=== PATIENT | male | born 1955 | race Caucasian/White ===

== ENCOUNTER → 2017-08-13 | Day surgery (SDC) | payer OTHER ==
[~2017-08-13] MED LIST: Lactated Ringers 1,000 ML IV SCH; Propofol 200 MG/20 ML SDV IV ONE
[2017-08-13 08:25] VITALS: BP 151/79
--- NOTE | 2017-08-13 12:31 | OR ---
DATE OF OPERATION: 08/13/2017 PREOPERATIVE DIAGNOSIS: SCREENING COLONOSCOPY. POSTOPERATIVE DIAGNOSIS: SCREENING COLONOSCOPY. SURGEON: Jaron Bishop MD PROCEDURE: FULL LENGTH COLONOSCOPY WITH SNARE POLYPECTOMY X1. ANESTHESIA: EQUIPMENT MAINTENANCE TECHNICIAN. COMPLICATIONS: None. SPECIMEN: Villous adenoma, proximal sigmoid colon. FINDINGS: 1. Full-length colonoscopy. 2. Mild sigmoid diverticulosis. 3. Tubulovillous adenoma, proximal sigmoid colon, approximately 0.5 cm. RECOMMENDATIONS: Followup colonoscopy in 3 years. INDICATIONS: The patient is due for a screening colonoscopy. Dr. Calvillo sent him as his last procedure had been over 10 years ago. DESCRIPTION OF PROCEDURE: The patient was prepped and draped, placed in the left lateral decubitus position. A lubricated Olympus colonoscope was inserted and easily advanced to the cecum. Direct visualization of the ileocecal valve was accomplished. The bowel prep was adequate. Upon withdrawal, the cecum, ascending, and transverse colon were all completely benign. The patient had scattered diverticula in the left colon, starting at the distal descending colon, extending to the rectosigmoid junction, mild in severity. At around 50 cm, what appeared to be the proximal sigmoid colon, the patient had a tubulovillous adenoma approximately 0.5 cm in size. This was removed with a snare and suctioned to polyp trap #1 without difficulty. No other polyps, masses, ulcerations, or lesions were seen. There were no vascular abnormalities or signs of colitis. The rectal vault was unremarkable. Retroflexion of scope in the rectum showed no anal lesions. Air was suctioned, scope removed without complication. CELI/JUANITO /[id number]
== END ==
LOC: CC.SDS 06:06
PROVIDERS: ATTEND Family Medicine
DX: Z12.11 Encounter for screening for malignant neoplasm of colon (principal); J01.90 Acute sinusitis, unspecified; F41.8 Other specified anxiety disorders; M19.90 Unspecified osteoarthritis, unspecified site; H91.8X9 Other specified hearing loss, unspecified ear; N40.1 Benign prostatic hyperplasia with lower urinary tract symptoms; I10 Essential (primary) hypertension; K57.30 Diverticulosis of large intestine without perforation or abscess without bleeding; D12.5 Benign neoplasm of sigmoid colon; E78.5 Hyperlipidemia, unspecified; R35.1 Nocturia; N41.0 Acute prostatitis; J30.2 Other seasonal allergic rhinitis; E11.9 Type 2 diabetes mellitus without complications; N39.0 Urinary tract infection, site not specified; E55.9 Vitamin D deficiency, unspecified; Z88.0 Allergy status to penicillin; Z88.4 Allergy status to anesthetic agent; Z79.899 Other long term (current) drug therapy; Z87.442 Personal history of urinary calculi; Z90.49 Acquired absence of other specified parts of digestive tract; Z98.52 Vasectomy status; Z87.891 Personal history of nicotine dependence
CPT/HCPCS: 45385; J2704; J7120

== ENCOUNTER 2018-08-01 17:31 | Inpatient (IN) | payer OTHER ==
[2018-08-01] MEDS ORDERED: Ondansetron 4 MG/2 ML SDV IV PRN (17:57)
[2018-08-01] MEDS ORDERED: Temazepam 15 MG Cap PO PRN (17:57)
[2018-08-01] MEDS ORDERED: Acetaminophen 325 MG Tab PO PRN (17:57)
[2018-08-01] MEDS ORDERED: Morphine 2 MG/ML Syringe IVPUSH PRN (17:57)
[2018-08-01] MEDS ORDERED: Sodium Chloride 0.9% 1,000 ML IV SCH (18:00)
[2018-08-01] MEDS ORDERED: Levofloxacin/Dextrose 5%-Water 500 MG in Premix Bag 1 BAG IV SCH (18:00)
[2018-08-01] MEDS: metroNIDAZOLE/Normal Saline 500 MG in Premix Bag 1 BAG IV SCH (19:43)
[2018-08-01] MEDS ORDERED: ClonazePAM 1 MG Tab PO PRN (19:55)
[2018-08-01] MEDS ORDERED: amLODIPine 2.5 MG Tab PO SCH (20:00)
[2018-08-01] MEDS ORDERED: risperiDONE 1 MG Tab PO SCH (20:00)
[2018-08-01] MEDS ORDERED: Enoxaparin 30 MG/0.3 ML Syringe SUBCUT SCH (20:45)
[2018-08-02] MEDS: metroNIDAZOLE/Normal Saline 500 MG in Premix Bag 1 BAG IV SCH ×2 (02:19→09:16)
[2018-08-02 07:44] LABS: CHLORIDE,CL 104 mEq/L (98-106); SODIUM,NA 138 mEq/L (136-145)
[2018-08-02] MEDS ORDERED: Potassium Chloride 20 MEQ in Premix Bag 1 BAG IV ONE (09:04)
[2018-08-02] MEDS ORDERED: Sodium Chloride 0.9% 500 ML IV ONE ×4 (09:45→14:00)
[2018-08-02] MEDS: Sodium Chloride 0.9% 1,000 ML IV ONE ×2 (10:24→12:45)
[2018-08-02 12:00] VITALS: BP 126/66
--- NOTE | 2018-08-02 12:22 | PCM.PN ---
- Patient Data Vitals - Most Recent: Last Vital Signs Temp 99.7 F 08/02/18 11:58 Pulse 74 08/02/18 11:58 Resp 20 08/02/18 11:58 BP 126/66 08/02/18 11:58 Pulse Ox 94 L 08/02/18 11:58 Weight - Most Recent: 205 lb 11.2 oz I&O - Last 24 Hours: Intake & Output 08/01/18 08/02/18 08/02/18 22:59 06:59 14:59 Intake Total 100 100 Balance 100 100 Lab Results Last 24 Hours: Laboratory Results - last 24 hr 08/02/18 08/02/18 Range/Units 07:00 07:00 WBC 8.7 (5.0-10.0) 10^3/uL RBC 4.63 (4.50-6.00) 10^6/uL Hgb 14.2 (14.0-18.0) g/dL Hct 40.7 (40.0-54.0) % MCV 87.9 (82.0-94.0) fL MCH 30.7 (27.0-32.0) pg MCHC 34.9 (33.0-38.0) g/dL RDW Coeff of [place] 12.1 (11.0-15.0) % Plt Count 303 (150-400) 10^3/uL Neut % (Auto) 73.2 (35-85) % Lymph % (Auto) 10.2 (10-55) % [place] % (Auto) 14.7 (0-16) % Eos % (Auto) 1.7 (0-5) % Baso % (Auto) 0.2 (0-3) % Neut # (Auto) 6.33 (1.80-7.00) 10^3/uL Lymph # (Auto) 0.88 L (1.00-4.80) 10^3/uL [place] # (Auto) 1.27 H (0.00-0.80) 10^3/uL Eos # (Auto) 0.15 (0.00-0.45) 10^3/uL Baso # (Auto) 0.02 10^3/uL Sodium 138 (136-145) mEq/L Potassium 3.4 L (3.5-5.0) mEq/L Chloride 104 (98-106) mEq/L Carbon Dioxide 24 (21-32) mmol/L BUN 8 (7-18) mg/dL Creatinine 1.0 (0.7-1.3) mg/dL Est Cr Clr Drug Dosing 72.20 mL/min Estimated GFR (MDRD) > 60 (>=60) mL/min Glucose 101 H (75-99) mg/dL Calcium 7.9 L (8.4-10.1) mg/dL C-Reactive Protein 6.9 H (0.2-0.8) mg/dL Med Orders - Current: Current Medications Acetaminophen (Tylenol) 650 mg PO Q4H PRN PRN Reason: Pain (Mild 1-3)/fever Amlodipine Besylate (Norvasc) 5 mg PO BEDTIME [facility] Last Admin: 08/01/18 20:38 Dose: 5 mg Clonazepam (Klonopin) 0.5 mg PO BID PRN PRN Reason: Anxiety Last Admin: 08/01/18 20:39 Dose: 0.5 mg Enoxaparin Sodium (Lovenox) 30 mg SUBCUT Q24H [facility] Last Admin: 08/01/18 21:08 Dose: 30 mg Metronidazole 500 mg/ Premix 100 mls @ 100 mls/hr IV Q8H [facility] Last Admin: 08/02/18 09:16 Dose: 100 mls/hr Potassium Chloride 20 meq/ (Premix) 100 mls @ 25 mls/hr IV ONETIME ONE Stop: 08/02/18 13:03 Last Admin: 08/02/18 10:24 Dose: 25 mls/hr Levofloxacin/Dextrose 500 mg/ (Premix) 100 mls @ 100 mls/hr IV 1500 [facility] Sodium Chloride (Normal Saline) 1,000 mls @ 250 mls/hr IV ONETIME ONE Stop: 08/02/18 13:44 Last Admin: 08/02/18 10:24 Dose: 250 mls/hr Morphine Sulfate (Morphine) 2 mg IVPUSH Q2H PRN PRN Reason: Pain (severe 7-10) Ondansetron HCl (Zofran) 4 mg IV Q6H PRN PRN Reason: Nausea/Vomiting Risperidone (Risperidal) 1 mg PO BEDTIME [facility] Last Admin: 08/01/18 20:38 Dose: 1 mg Temazepam (Restoril) 15 mg PO BEDTIME PRN PRN Reason: Sleep Discontinued Medications Levofloxacin/Dextrose 500 mg/ (Premix) 100 mls @ 100 mls/hr IV Q24H [facility] Last Admin: 08/01/18 20:42 Dose: 100 mls/hr Sodium Chloride (Normal Saline) 1,000 mls @ 100 mls/hr IV ASDIRECTED [facility] Last Admin: 08/01/18 19:40 Dose: 100 mls/hr Sodium Chloride (Normal Saline) 500 mls @ 125 mls/hr IV ONETIME ONE Stop: 08/02/18 13:44 - My Orders Last 24 Hours: My Active Orders 08/01/18 17:57 Patient Status [ADT] Routine Oxygen Therapy [RC] .PRN Up ad Nahed [RC] ASDIRECTED Vital Signs [RC] 0000,0400,0800,1200,1600,2000 Acetaminophen [Tylenol] 650 mg PO Q4H PRN Morphine 2 mg IVPUSH Q2H PRN Ondansetron [Zofran] 4 mg IV Q6H PRN Temazepam [Restoril] 15 mg PO BEDTIME PRN Resuscitation Status Routine 08/01/18 17:58 Pulse Oximetry [RC] .PRN 08/01/18 18:15 metroNIDAZOLE/Normal Saline [Flagyl 500 MG in NS 100 ML] 500 mg Premix Bag 1 bag IV Q8H 08/01/18 19:55 ClonazePAM [KlonoPIN] 0.5 mg PO BID PRN 08/01/18 20:00 amLODIPine [Norvasc] 5 mg PO BEDTIME risperiDONE [RisperiDAL] 1 mg PO BEDTIME 08/01/18 20:45 Enoxaparin [Lovenox] 30 mg SUBCUT Q24H 08/01/18 Dinner Regular Diet [DIET] 08/02/18 09:04 Potassium Chloride [KCL 20 MEQ in Water 100 ML] 20 meq Premix Bag 1 bag IV ONETIME 08/02/18 09:45 Sodium Chloride 0.9% [Normal Saline] 1,000 ml IV ONETIME 08/02/18 15:00 Levofloxacin/Dextrose 5%-Water [Levaquin in D5W 500 MG/100 ML] 500 mg Premix Bag 1 bag IV 1500 08/03/18 06:00 BASIC METABOLIC PANEL,BMP [CHEM] DAILY C-REACTIVE PROTEIN [CHEM] DAILY CBC WITH AUTO DIFF [HEME] DAILY 08/04/18 06:00 BASIC METABOLIC PANEL,BMP [CHEM] DAILY C-REACTIVE PROTEIN [CHEM] DAILY CBC WITH AUTO DIFF [HEME] DAILY
--- NOTE | 2018-08-02 12:23 | PCM.DCSUM1 ---
Discharge Summary - Discharge Data Discharge Date: 08/02/18 Discharge Disposition: Home, Self-Care 01 Condition: Good - Discharge Plan Prescriptions/Med Rec: Vancomycin [Vancocin 125 MG/2.5 ML Soln] 125 mg PO QID 10 Days #40 cup Home Medications: Home Meds amLODIPine Besylate [Amlodipine Besylate] 5 mg PO BEDTIME 01/12/16 [History] clonazePAM [Clonazepam] 0.5 tab PO BID PRN 01/12/16 [History] risperiDONE 1 tab PO BEDTIME 01/12/16 [History] Ascorbate Calcium [Vitamin C] 1 cap PO DAILY 08/12/17 [History] Vancomycin [Vancocin 125 MG/2.5 ML Soln] 125 mg PO QID 10 Days #40 cup 08/02/18 [Rx] Patient Handouts: Diverticulitis, [id number] - Patient Data Vitals - Most Recent: Last Vital Signs Temp 99.7 F 08/02/18 11:58 Pulse 74 08/02/18 11:58 Resp 20 08/02/18 11:58 BP 126/66 08/02/18 11:58 Pulse Ox 94 L 08/02/18 11:58 Weight - Most Recent: 205 lb 11.2 oz I&O - Last 24 hours: Intake & Output 08/01/18 08/02/18 08/02/18 22:59 06:59 14:59 Intake Total 100 100 Balance 100 100 Lab Results - Last 24 hrs: Laboratory Results - last 24 hr 08/02/18 08/02/18 Range/Units 07:00 07:00 WBC 8.7 (5.0-10.0) 10^3/uL RBC 4.63 (4.50-6.00) 10^6/uL Hgb 14.2 (14.0-18.0) g/dL Hct 40.7 (40.0-54.0) % MCV 87.9 (82.0-94.0) fL MCH 30.7 (27.0-32.0) pg MCHC 34.9 (33.0-38.0) g/dL RDW Coeff of [place] 12.1 (11.0-15.0) % Plt Count 303 (150-400) 10^3/uL Neut % (Auto) 73.2 (35-85) % Lymph % (Auto) 10.2 (10-55) % [place] % (Auto) 14.7 (0-16) % Eos % (Auto) 1.7 (0-5) % Baso % (Auto) 0.2 (0-3) % Neut # (Auto) 6.33 (1.80-7.00) 10^3/uL Lymph # (Auto) 0.88 L (1.00-4.80) 10^3/uL [place] # (Auto) 1.27 H (0.00-0.80) 10^3/uL Eos # (Auto) 0.15 (0.00-0.45) 10^3/uL Baso # (Auto) 0.02 10^3/uL Sodium 138 (136-145) mEq/L Potassium 3.4 L (3.5-5.0) mEq/L Chloride 104 (98-106) mEq/L Carbon Dioxide 24 (21-32) mmol/L BUN 8 (7-18) mg/dL Creatinine 1.0 (0.7-1.3) mg/dL Est Cr Clr Drug Dosing 72.20 mL/min Estimated GFR (MDRD) > 60 (>=60) mL/min Glucose 101 H (75-99) mg/dL Calcium 7.9 L (8.4-10.1) mg/dL C-Reactive Protein 6.9 H (0.2-0.8) mg/dL Med Orders - Current: Current Medications Acetaminophen (Tylenol) 650 mg PO Q4H PRN PRN Reason: Pain (Mild 1-3)/fever Amlodipine Besylate (Norvasc) 5 mg PO BEDTIME [facility] Last Admin: 08/01/18 20:38 Dose: 5 mg Clonazepam (Klonopin) 0.5 mg PO BID PRN PRN Reason: Anxiety Last Admin: 08/01/18 20:39 Dose: 0.5 mg Enoxaparin Sodium (Lovenox) 30 mg SUBCUT Q24H [facility] Last Admin: 08/01/18 21:08 Dose: 30 mg Metronidazole 500 mg/ Premix 100 mls @ 100 mls/hr IV Q8H [facility] Last Admin: 08/02/18 09:16 Dose: 100 mls/hr Potassium Chloride 20 meq/ (Premix) 100 mls @ 25 mls/hr IV ONETIME ONE Stop: 08/02/18 13:03 Last Admin: 08/02/18 10:24 Dose: 25 mls/hr Levofloxacin/Dextrose 500 mg/ (Premix) 100 mls @ 100 mls/hr IV 1500 [facility]INA Sodium Chloride (Normal Saline) 1,000 mls @ 250 mls/hr IV ONETIME ONE Stop: 08/02/18 13:44 Last Admin: 08/02/18 10:24 Dose: 250 mls/hr Morphine Sulfate (Morphine) 2 mg IVPUSH Q2H PRN PRN Reason: Pain (severe 7-10) Ondansetron HCl (Zofran) 4 mg IV Q6H PRN PRN Reason: Nausea/Vomiting Risperidone (Risperidal) 1 mg PO BEDTIME [facility] Last Admin: 08/01/18 20:38 Dose: 1 mg Temazepam (Restoril) 15 mg PO BEDTIME PRN PRN Reason: Sleep Discontinued Medications Levofloxacin/Dextrose 500 mg/ (Premix) 100 mls @ 100 mls/hr IV Q24H [facility] Last Admin: 08/01/18 20:42 Dose: 100 mls/hr Sodium Chloride (Normal Saline) 1,000 mls @ 100 mls/hr IV ASDIRECTED [facility] Last Admin: 08/01/18 19:40 Dose: 100 mls/hr Sodium Chloride (Normal Saline) 500 mls @ 125 mls/hr IV ONETIME ONE Stop: 08/02/18 13:44
[2018-08-02] MEDS ORDERED: Sodium Chloride 0.9% 500 ML ONE (12:41)
[2018-08-02] MEDS ORDERED: Levofloxacin/Dextrose 5%-Water 500 MG in Premix Bag 1 BAG IV SCH (15:00)
== END 2018-08-02 16:10 | disposition home or self-care (01) | DRG 392 ==
LOC: UNDOADMIN 17:55 → CC.MS 17:55
PROVIDERS: ADMIT Physician Assistant Medical; ATTEND Family Medicine
DX: K57.20 Diverticulitis of large intestine with perforation and abscess without bleeding (principal); F41.9 Anxiety disorder, unspecified; F32.9 Major depressive disorder, single episode, unspecified; M19.90 Unspecified osteoarthritis, unspecified site; H91.8X9 Other specified hearing loss, unspecified ear; I10 Essential (primary) hypertension; E78.5 Hyperlipidemia, unspecified; E55.9 Vitamin D deficiency, unspecified; Z88.0 Allergy status to penicillin; Z88.4 Allergy status to anesthetic agent; Z79.899 Other long term (current) drug therapy; Z87.891 Personal history of nicotine dependence; R19.7 Diarrhea, unspecified; R10.9 Unspecified abdominal pain
CPT/HCPCS: 36415; 74177; 80048; 80053; 81001; 83735; 85025; 86140; 87045; 87046; 87493; 87899; 89055; A9270-GY; J1650; J1956; J3480; J3490; J7030; J7040; Q9967

== ENCOUNTER → 2018-10-06 | Day surgery (SDC) | payer OTHER ==
[~2018-10-06] MED LIST changes: +Bupivacaine 0.25% 10 ML SDV ONE; +Lidocaine 1% with EPINEPHrine 1:100,000 20 ML MDV ONE; +Midazolam 1 MG/ML 2 ML SDV IV ONE; +Ondansetron 4 MG/2 ML SDV IV ONE; +fentaNYL 100 MCG/2 ML SDV IV ONE
[2018-10-06 13:22] VITALS: BP 141/76
--- NOTE | 2018-10-07 09:35 | OR ---
DATE OF OPERATION: 10/06/2018 PREOPERATIVE DIAGNOSIS: HISTORY OF PERIRECTAL ABSCESS ON RIGHT SIDE. POSTOPERATIVE DIAGNOSIS: HISTORY OF PERIRECTAL ABSCESS ON RIGHT SIDE. SURGEON: Jaiden Marques MD PROCEDURE: EXAMINATION UNDER ANESTHESIA. ANESTHESIA: Monitored anesthesia care. SPECIMEN: None. INDICATIONS: This 62-year-old male complains of intermittent abscess or swelling in the perirectal area. This mostly is on the right side by my physical examination several months ago. When I initially saw him in the clinic, he did have more of an indurated, nodular area, but not a true flocculent area to drain. He still says he persists with some symptoms, but at the current time, it is mostly gone, he said. I recommended an examination under anesthesia. DESCRIPTION OF PROCEDURE: After adequate sedation, an anoscope was inserted into the rectum. He does have an indurated area on the right side, in the perianal area anterior to [place]'s line. By theory, he should have a radial tract from the indurated area straight into the anal canal. However, examination does not show any kind of an opening in the anal canal. I did aspirate this area, which by palpation seemed to be about a centimeter in diameter. I was not able to aspirate any type of fluid or purulent abscess. I decided that this may be more induration than abscess, and decided not to incise and drain this area since I did not feel that I would get anything out of it. No other abnormalities were noted. FINDINGS: On rectal examination, he does have a few external hemorrhoids. The patient was awakened and taken to recovery room. YAKELIN/JUANITO /[id number]
== END ==
LOC: CC.SDS 09:08
PROVIDERS: ATTEND Surgery
DX: K64.4 Residual hemorrhoidal skin tags (principal); E78.5 Hyperlipidemia, unspecified; E55.9 Vitamin D deficiency, unspecified; I10 Essential (primary) hypertension; M19.90 Unspecified osteoarthritis, unspecified site; F41.9 Anxiety disorder, unspecified; F32.9 Major depressive disorder, single episode, unspecified; Z88.0 Allergy status to penicillin; Z88.4 Allergy status to anesthetic agent; Z79.899 Other long term (current) drug therapy; Z87.891 Personal history of nicotine dependence
CPT/HCPCS: J2250; J2405; J2704; J3010; J7120

== ENCOUNTER → 2020-05-17 | Day surgery (SDC) | payer OTHER ==
[~2020-05-17] MED LIST changes: -Bupivacaine 0.25% 10 ML SDV ONE; +Ketamine 200 MG/20 ML MDV IV ONE; -Lactated Ringers 1,000 ML IV SCH; -Lidocaine 1% with EPINEPHrine 1:100,000 20 ML MDV ONE; -Ondansetron 4 MG/2 ML SDV IV ONE
[2020-05-17] MEDS: Lactated Ringers 1,000 ML IV SCH (08:45)
[2020-05-17 09:59] VITALS: BP 139/78; PULSE 67
--- NOTE | 2020-05-17 14:23 | OR ---
DATE OF OPERATION: 05/17/2020 PREOPERATIVE DIAGNOSIS: FOLLOWUP POLYPS. POSTOPERATIVE DIAGNOSIS: FOLLOWUP POLYPS. SURGEON: Jaron Bishop MD PROCEDURE: FULL-LENGTH COLONOSCOPY. ANESTHESIA: MAC. COMPLICATIONS: None. SPECIMEN: None. FINDINGS: 1. Full-length colonoscopy. 2. No polyp recurrence. 3. Mild sigmoid diverticulosis. RECOMMENDATIONS: Followup colonoscopy in 5 years. INDICATIONS: The patient had a villous lesion removed 3 years ago. He is due for a followup surveillance scope. DESCRIPTION OF PROCEDURE: The patient was prepped and draped, placed in a left lateral decubitus position. A lubricated Olympus colonoscope inserted and with ease advanced to the cecum, direct visualization of the ileocecal valve and appendiceal orifice was accomplished. The bowel prep was fine. Upon withdrawal of the scope, once again the right transverse and descending colons were completely unremarkable. The patient had scattered diverticula in the sigmoid and in the rectosigmoid junction, mild in severity. There was no sign of polyp recurrence in the sigmoid colon. The rectal vault was benign. Retroflexion of the scope in the rectum showed no anal lesions. Air was suctioned. Scope removed without complication. CELI/JUANITO /[id number]
== END ==
LOC: CC.SDS 08:12
PROVIDERS: ATTEND Family Medicine
DX: Z12.11 Encounter for screening for malignant neoplasm of colon (principal); K57.30 Diverticulosis of large intestine without perforation or abscess without bleeding; F41.9 Anxiety disorder, unspecified; F32.9 Major depressive disorder, single episode, unspecified; I10 Essential (primary) hypertension; E78.5 Hyperlipidemia, unspecified; Z88.1 Allergy status to other antibiotic agents; Z88.0 Allergy status to penicillin; Z88.8 Allergy status to other drugs, medicaments and biological substances; Z79.899 Other long term (current) drug therapy; Z87.891 Personal history of nicotine dependence; Z86.010 Personal history of colon polyps
CPT/HCPCS: J2250; J2704; J3010; J7120

== ENCOUNTER 2021-01-30 00:40 | Emergency (ER) | payer OTHER ==
[2021-01-30 01:13] LABS: CHLORIDE,CL 103 mEq/L (98-106); SODIUM,NA 139 mEq/L (136-145)
[2021-01-30] MEDS ORDERED: Ondansetron 4 MG Tab.DIS PO ONE (01:22)
[2021-01-30] MEDS ORDERED: Bisacodyl 10 MG Supp RECTAL ONE (01:22)
--- NOTE | 2021-01-30 01:23 | EDM.PDOC ---
ED HPI GENERAL MEDICAL PROBLEM - General Chief Complaint: General Stated Complaint: abdominal pain Time Seen by Provider: 01/30/21 01:10 Source of Information: Reports: Patient History Limitations: Reports: No Limitations - History of Present Illness INITIAL COMMENTS - FREE TEXT/NARRATIVE: Seth is a 65 year old male who presents to ER with complaints of lower quadrant abdominal discomfort, nausea/vomiting. Ate a 2 day old steak that was in the fridge tonight, questions if caused food poisoning. He denies fever. Had one episode of vomiting prior to coming to the ER. Feels bloated. No diarrhea. Last BM was over 2 days ago. He admits that was drinking a great deal of alcohol, stopped 3-4 days ago. No tremors or hallucinations. Had been feeling well all day until around 10 pm. Has not been able to void easily nor pass gas. Onset: Today Duration: Hour(s):, Waxing/Waning Location: Reports: Abdomen Quality: Reports: Ache Severity: Moderate Associated Symptoms: Reports: Nausea/Vomiting. Denies: Confusion, Chest Pain, Cough, Fever/Chills, Loss of Appetite, Shortness of Breath Bilateral Lower Abdomen Pain Score (Numeric/FACES): 8 - Related Data Allergies Allergy/AdvReac Type Severity Reaction Status Date / Time erythromycin base Allergy Intermediate Rash Verified 01/30/21 01:19 [Erythromycin Base] Penicillins Allergy Intermediate Rash Verified 01/30/21 01:19 clindamycin Allergy Cannot Verified 01/30/21 01:19 Remember gel caps AdvReac Nervousness Uncoded 01/30/21 01:19 novacaine AdvReac Shaking Uncoded 01/30/21 01:19 petroleum chemicals AdvReac Nervousness Uncoded 01/30/21 01:19 Home Meds: Home Meds amLODIPine Besylate [Amlodipine Besylate] 5 mg PO BEDTIME 01/12/16 [History] clonazePAM [Clonazepam] 0.25 tab PO BID PRN 01/12/16 [History] risperiDONE 1 mg PO BEDTIME 01/12/16 [History] Calcium Carbonate [Antacid] 1 tab PO ASDIRECTED PRN 01/30/21 [History] Past Medical History HEENT History: Reports: Hard of Hearing, Impaired Vision Cardiovascular History: Reports: Hypertension Gastrointestinal History: Reports: Diverticulosis Psychiatric History: Reports: Anxiety, Depression Endocrine/Metabolic History: Reports: Other (See Below) Other Endocrine/Metabolic History: borderline diabetic - Infectious Disease History Infectious Disease History: Reports: C-Difficile - Past Surgical History GI Surgical History: Reports: Appendectomy, Colonoscopy Social & Family History - Family History Cardiac: Reports: Hypertension Endocrine/Metabolic: Reports: Diabetes, type II - Tobacco Use Tobacco Use Status *Q: Former Tobacco User - Caffeine Use Caffeine Use: Reports: Coffee - Living Situation & Occupation Living situation: Reports: with Family ED ROS GENERAL - Review of Systems Review Of Systems: See Below Constitutional: Denies: Fever, Chills, Malaise, Weakness, Fatigue, Decreased Appetite HEENT: Denies: Ear Pain, Sinus Problem, Throat Pain, Vertigo Respiratory: Denies: Shortness of Breath, Cough Cardiovascular: Denies: Chest Pain, Edema, Lightheadedness Endocrine: Denies: Fatigue GI/Abdominal: Reports: Abdominal Pain, Constipation, Nausea, Vomiting. Denies: Black Stool, Bloody Stool : Reports: Urinary Retention Musculoskeletal: Reports: No Symptoms Skin: Reports: No Symptoms Neurological: Reports: No Symptoms ED EXAM, GENERAL - Physical Exam Exam: See Below Exam Limited By: No Limitations General Appearance: Alert, WD/WN, Mild Distress Ears: Normal External Exam, Normal TMs Nose: Normal Inspection, Normal Mucosa, No Blood Throat/Mouth: Normal Inspection, Normal Oropharynx Head: Normocephalic Neck: Normal Inspection, Supple, Non-Tender Respiratory/Chest: No Respiratory Distress, Lungs Clear, Normal Breath Sounds Cardiovascular: Regular Rate, Rhythm GI/Abdominal: Normal Bowel Sounds, Soft, Tender (suprapubic area) Extremities: Normal Inspection, No Pedal Edema Neurological: Alert, Oriented Skin Exam: Warm, Dry Course - Vital Signs Last Recorded V/S: Last Vital Signs Temp 98.3 F 01/30/21 03:55 Pulse 61 01/30/21 03:55 Resp 18 01/30/21 03:55 BP 137/74 01/30/21 03:55 Pulse Ox 95 01/30/21 03:55 - Orders/Labs/Meds Orders: Active Orders 24 hr Category Date Time Status Abdomen 2V AP Flat Upright [CR] Stat Exams 01/30/21 01:03 Taken Abdomen Pelvis w Cont [CT] Stat Exams 01/30/21 01:52 Taken Labs: Laboratory Tests 01/30/21 01/30/21 01/30/21 Range/Units 00:55 00:55 00:55 WBC 7.3 (5.0-10.0) 10^3/uL RBC 4.42 L (4.50-6.00) 10^6/uL Hgb 13.7 L (14.0-18.0) g/dL Hct 40.1 (40.0-54.0) % MCV 90.7 (82.0-94.0) fL MCH 31.0 (27.0-32.0) pg MCHC 34.2 (33.0-38.0) g/dL RDW Coeff of [place] 12.8 (11.0-15.0) % Plt Count 247 (150-400) 10^3/uL Neut % (Auto) 61.2 (35-85) % Lymph % (Auto) 23.2 (10-55) % [place] % (Auto) 11.6 (0-16) % Eos % (Auto) 3.5 (0-5) % Baso % (Auto) 0.5 (0-3) % Neut # (Auto) 4.48 (1.80-7.00) 10^3/uL Lymph # (Auto) 1.70 (1.00-4.80) 10^3/uL [place] # (Auto) 0.85 H (0.00-0.80) 10^3/uL Eos # (Auto) 0.26 (0.00-0.45) 10^3/uL Baso # (Auto) 0.04 10^3/uL Sodium 139 (136-145) mEq/L Potassium 3.7 (3.5-5.0) mEq/L Chloride 103 (98-106) mEq/L Carbon Dioxide 24 (21-32) mmol/L BUN 18 (7-18) mg/dL Creatinine 1.5 H (0.7-1.3) mg/dL Est Cr Clr Drug Dosing 47.01 mL/min Estimated GFR (MDRD) 47 L (>=60) mL/min Glucose 162 H D (75-99) mg/dL Calcium 8.1 L (8.4-10.1) mg/dL Total Bilirubin 0.6 (0.0-1.0) mg/dL AST 38 H (15-37) U/L ALT 59 (12-78) U/L Alkaline Phosphatase 99 (46-116) U/L C-Reactive Protein < 0.2 L (0.2-0.8) mg/dL Total Protein 7.5 (6.4-8.2) g/dL Albumin 3.7 (3.4-5.0) g/dL Amylase 48 (25-115) U/L Lipase 139 (73-393) U/L Urine Color Light yellow (YELLOW) Urine Appearance Clear (CLEAR) Urine pH 7.0 (4.5-8.0) Ur Specific [place] 1.025 H (1.003-1.020) Urine Protein Negative (NEGATIVE) mg/dL Urine Glucose (UA) 100 H (NEGATIVE) mg/dL Urine Ketones Negative (NEGATIVE) mg/dL Urine Occult Blood Trace-intact H (NEGATIVE) Urine Nitrite Negative (NEGATIVE) Urine Bilirubin Negative (NEGATIVE) Urine Urobilinogen 0.2 (0.2-1.0) EU/dL Ur Leukocyte Esterase Negative (NEGATIVE) Urine RBC 0-5 (0-5) /HPF Urine WBC Not seen (0-5) /HPF Meds: Medications Discontinued Medications Generic Name Dose Route Start Last Admin Trade Name Freq PRN Reason Stop Dose Admin Bisacodyl 10 mg 01/30/21 01:22 01/30/21 01:25 Bisacodyl 10 Mg Supp RECTAL 01/30/21 01:23 10 mg ONETIME ONE Administration Sodium Chloride 1,000 mls @ 999 mls/hr 01/30/21 02:27 01/30/21 02:34 Normal Saline IV 01/30/21 03:27 999 mls/hr .BOLUS ONE Administration Iopamidol 100 ml 01/30/21 01:58 01/30/21 02:12 Iopamidol 755 Mg/Ml 100 Ml Bottle IVPUSH 01/30/21 01:59 100 ml ONETIME ONE Administration Ketorolac Tromethamine 30 mg 01/30/21 02:27 01/30/21 02:33 Ketorolac 30 Mg/Ml Sdv IVPUSH 01/30/21 02:28 30 mg ONETIME ONE Administration Ondansetron HCl 4 mg 01/30/21 01:22 01/30/21 01:25 Ondansetron 4 Mg Tab.Dis PO 01/30/21 01:23 4 mg ONETIME ONE Administration - Re-Assessments/Exams Free Text/Narrative Re-Assessment/Exam: 01/30/21 01:33 Labs all unremarkable. Xray shows gas and stool presence, no obstruction. Zofran given, dulcolax suppository given. 0150-UA shows trace of blood. Had small BM which he states "helped only a little bit". Still feels urge to defacate. Having ongoing lower suprapubic pain. Will proceed with CT scan of abdomen. 01/30/21 02:25 CT report received. Does have 3.7 mm stone to the right ureter, nonobstructing. Will start IV fluids, IV Toradol for pain. 01/30/21 03:00-Patient relates pain "100% better now". Resting more comfortably. Departure - Departure Time of Disposition: 03:58 Disposition: Home, Self-Care 01 Condition: Good Clinical Impression: Ureteral stone - Discharge Information *PRESCRIPTION DRUG MONITORING PROGRAM REVIEWED*: No *COPY OF PRESCRIPTION DRUG MONITORING REPORT IN PATIENT VENTURA: No Instructions: Kidney Stones Referrals: Natalio Castro, RAÚL [Primary Care Provider] - Forms: ED Department Discharge Additional Instructions: 1. Push fluids 2. Strain urine 3. Hydrocodone 1-2 tabs every 6 hours as needed for pain 4. Flomax 0.4 mg daily for 7 days 5. Keep scheduled appointment with Kris Castro on Wednesday am as planned. Sepsis Event Note (ED) - Evaluation Sepsis Screening Result: No Definite Risk - Focused Exam Vital Signs: Vital Signs Temp Pulse Resp BP Pulse Ox 01/30/21 03:55 98.3 F 61 18 137/74 95 01/30/21 00:43 98.4 F 72 18 177/101 H 95 - My Orders Last 24 Hours: My Active Orders 01/30/21 01:03 Abdomen 2V AP Flat Upright [CR] Stat 01/30/21 01:52 Abdomen Pelvis w Cont [CT] Stat - Assessment/Plan Last 24 Hours: My Active Orders 01/30/21 01:03 Abdomen 2V AP Flat Upright [CR] Stat 01/30/21 01:52 Abdomen Pelvis w Cont [CT] Stat
[2021-01-30] MEDS ORDERED: Iopamidol 755 Mg/ML 100 ML Bottle IVPUSH ONE (01:58)
[2021-01-30] MEDS ORDERED: Sodium Chloride 0.9% 1,000 ML IV ONE (02:27)
[2021-01-30] MEDS ORDERED: Ketorolac 30 MG/ML SDV IVPUSH ONE (02:27)
[2021-01-30 03:55] VITALS: BP 137/74; PULSE 61
[2021-01-30] MEDS ORDERED: Take Home: Acetaminophen/HYDROcodone 325-5 MG, 2 Tab Pack PO ONE (04:00)
== END 2021-01-30 04:15 | disposition home or self-care (01) ==
LOC: CC.ED 00:40
DX: N13.2 Hydronephrosis with renal and ureteral calculous obstruction (principal); I10 Essential (primary) hypertension; Z88.1 Allergy status to other antibiotic agents; Z88.0 Allergy status to penicillin; Z88.4 Allergy status to anesthetic agent; Z91.048 Other nonmedicinal substance allergy status; Z87.891 Personal history of nicotine dependence
CPT/HCPCS: 36415; 74019; 74177; 80053; 81001; 82150; 83690; 85025; 86140; 96374; 99284-25; A9270-GY; J1885; J7030; Q9967

== ENCOUNTER 2025-02-09 08:07 | Day surgery (SDC) | payer OTHER, MEDICARE ==
[2025-02-09] MEDS: Lactated Ringers 1,000 ML IV SCH (08:31)
[2025-02-09] MEDS ORDERED: Midazolam 1 MG/ML 2 ML SDV ONE (08:40)
[2025-02-09] MEDS ORDERED: Glycopyrrolate 0.2 MG/ML SDV ONE ×2 (08:40)
[2025-02-09] MEDS ORDERED: Ketamine 200 MG/20 ML MDV ONE (08:40)
[2025-02-09] MEDS ORDERED: fentaNYL 50 MCG/ML SDV ONE (08:40)
[2025-02-09] MEDS ORDERED: Propofol 200 MG/20 ML SDV ONE (08:40)
[2025-02-09 10:01] VITALS: BP 116/72; PULSE 58
== END 2025-02-09 10:02 | disposition home or self-care (01) ==
LOC: CC.SDS 08:07
PROVIDERS: ATTEND Family Medicine
DX: Z12.11 Encounter for screening for malignant neoplasm of colon (principal); D12.5 Benign neoplasm of sigmoid colon; D12.8 Benign neoplasm of rectum; Z86.0100 Personal history of colon polyps, unspecified; K57.30 Diverticulosis of large intestine without perforation or abscess without bleeding; I10 Essential (primary) hypertension; E78.5 Hyperlipidemia, unspecified; F41.9 Anxiety disorder, unspecified; Z79.899 Other long term (current) drug therapy; Z88.0 Allergy status to penicillin; Z88.1 Allergy status to other antibiotic agents
CPT/HCPCS: 00811; 45385; 88305; 99100; J1596; J2250; J2704; J3010; J3490; J7120

== ENCOUNTER 2025-05-20 18:05 | Emergency (ER) | payer OTHER, MEDICARE ==
[2025-05-20] MEDS: Bacitracin Oint 1 GM U/D Packet TOP ONE (18:28)
[2025-05-20] MEDS: Diphtheria/Tetanus Toxoids,Adult (Td) 0.5 ML Syringe IM ONE (18:55)
[2025-05-20 19:58] VITALS: BP 148/69; PULSE 53
== END 2025-05-20 19:25 | disposition home or self-care (01) ==
LOC: CC.ED 18:05
DX: S61.216A Laceration without foreign body of right little finger without damage to nail, initial encounter (principal); I10 Essential (primary) hypertension; Z79.899 Other long term (current) drug therapy; Z88.1 Allergy status to other antibiotic agents; Z88.0 Allergy status to penicillin; Z90.49 Acquired absence of other specified parts of digestive tract; Z87.890 Personal history of sex reassignment; Z23 Encounter for immunization; W22.8XXA Striking against or struck by other objects, initial encounter
CPT/HCPCS: 12002; 73140-F9; 90471; 90714; 99283-25; J2003